=== PATIENT | female | born 1980 | race Caucasian/White ===

== ENCOUNTER 2021-03-15 09:14 | Emergency (ER) | payer OTHER ==
[~2021-03-15 09:14] MED LIST: BLACK ELDERBER1 EACH PO; COLACE100 MG PO; FEOSOL325 MG PO; FIBER GUMMIES2 GM PO; IBUPROFEN800 M1 PO; IBUPROFEN800 MG PO; NORETHINDRONE0.35 MG PO; PERCOCET 5-3251 EACH PO; ZOFRAN8 MG PO
[2021-03-15 10:27] LABS: BILIRUBIN NEGATIVE (NEGATIVE); BLOOD NEGATIVE Ery/uL (NEGATIVE); CLARITY CLEAR (CLEAR); COLOR YELLOW (YELLOW); GLUCOSE (U) NORMAL (NORMAL); LEUKOCYTES NEGATIVE Leu/uL (NEGATIVE); NITRITE NEGATIVE (NEGATIVE); PROTEIN NEGATIVE (NEGATIVE); SPECIFIC GRAVITY <=1.005 (1.001-1.030); UROBILINOGEN 0.2 mg/dL (0.2-1.0); pH 7.5 (5.0-9.0)
[2021-03-15 10:29] LABS: HCG (URINE) SCREEN NEGATIVE (NEGATIVE)
[2021-03-15 12:43] LABS: BASOPHIL 0.3 % (0-2); EOSINOPHIL 0.6 % (0-5); HCT 40.8 % (37.0-47.0); HGB 13.1 g/dl (12.5-16.0); LYMPHOCYTE 16.2 % (15-48); MCH 27.6 pg (25.0-31.0); MCHC 32.1 g/dL (32.0-36.0); MCV 85.9 fL (78.0-100.0); MONOCYTE 3.8 % (0-12); MPV 9.1 fL (6.0-9.5); NEUTROPHIL 78.7 % (41-80); NRBC 0; PLT 351 K/uL (150-400); RBC 4.75 M/uL (4.20-5.40); RDW 13.6 % (11.5-14.0); WBC 12.5 K/uL (4.0-10.5)
[2021-03-15 13:09] LABS: CORONAVIRUS 2019 SARS-COV-2 NEGATIVE (NEGATIVE); INFLUENZA A NAA NEGATIVE (NEGATIVE)
[2021-03-15 13:14] LABS: ALBUMIN 4.1 g/dL (3.4-5.0); BILIRUBIN - TOTAL 0.3 mg/dL (0.2-1.0); BUN/CREAT RATIO (CALC) 16.1 RATIO; CREATININE 0.56 mg/dL (0.51-0.95); GLOBULIN (CALCULATION) 4.1 g/dL; POTASSIUM 3.9 mmol/L (3.5-5.1); TOTAL PROTEIN 8.2 g/dL (6.4-8.2)
== END 2021-03-15 13:36 | disposition home or self-care (01) ==
LOC: FER 09:14
PROVIDERS: Internal Medicine
DX: F41.9 Anxiety disorder, unspecified (principal); R20.2 Paresthesia of skin; Z20.822 Contact with and (suspected) exposure to COVID-19
CPT/HCPCS: 36415; 70450; 72125; 80053; 81003; 84703; 85025; U0002